=== PATIENT | male | born 1950 | race Caucasian/White ===

== ENCOUNTER → 2020-05-23 09:55 | Outpatient (CLI) | payer MEDICARE, OTHER ==
[2019-04-24 13:28] VITALS: BMI 21.5
[~2020-05-23 09:55] MED LIST: ALBUTEROL SULF8.5 GM INH; ELIQUIS5 MG PO; HYDROCHLOROTH12.5 M1 PO; METOPROLOL TART50 MG PO
== END | disposition home or self-care (01) ==
LOC: D.RT 04-25 09:00
PROVIDERS: ATTEND Internal Medicine Pulmonary Disease
DX: R06.09 Other forms of dyspnea (principal)